=== PATIENT | male | born 1960 | race Caucasian/White ===

== ENCOUNTER → 2019-11-03 | Day surgery (SDC) | payer BC ==
[~2019-11-03] MED LIST: Ketamine 200 MG/20 ML MDV IV ONE; Lactated Ringers 1,000 ML IV SCH; Propofol 200 MG/20 ML SDV IV ONE; fentaNYL 100 MCG/2 ML SDV IV ONE
--- NOTE | 2019-11-03 14:54 | OR ---
DATE OF OPERATION: 11/03/2019 PREOPERATIVE DIAGNOSIS: POSITIVE COLOGUARD. POSTOPERATIVE DIAGNOSIS: POSITIVE COLOGUARD. SURGEON: Shakeel Choudhary MD PROCEDURE: DIAGNOSTIC COLONOSCOPY WITH BIOPSY X1, FORCEPS POLYP REMOVAL X2. ANESTHESIA: MAC. COMPLICATIONS: None. SPECIMEN: 1. Ascending colon biopsy x1. 2. Two small sessile polyps, rectal vault, 2 to 3 mm each. RECOMMENDATIONS: Followup colonoscopy in 5 years. INDICATIONS: The patient was in for routine physical. He never had a colon cancer screen and agreed to do a Cologuard, which was positive. He agreed to a diagnostic colonoscopy. DESCRIPTION OF PROCEDURE: The patient was prepped and draped, placed in a left lateral decubitus position. A lubricated Olympus colonoscope was inserted and with ease advanced to the cecum. Direct visualization of the ileocecal valve and appendiceal orifice was accomplished. The bowel prep was adequate. Upon withdrawal of the scope, cecum appeared benign. In the mid ascending colon, the patient had a very nonspecific area of focal mild colitis, we did a biopsy of that. Throughout the ascending, transverse, and descending colons, there were no polyps, masses, or concerning lesions. This extended into the sigmoid as well. I could find no polyps, masses, ulceration, or bleeding sites. No vascular abnormalities or signs of colitis. No diverticula. In the rectal vault, the patient had 2 small 2 to 3 mm sessile polyps, likely hyperplastic. Removal with forceps was accomplished easily with both. Retroflexion of the scope showed no other perianal lesions. Air was suctioned. Scope was removed without complication. KATELIN/PJ /[id number]
== END ==
LOC: CC.SDS 06:51
PROVIDERS: ATTEND Family Medicine
DX: K62.1 Rectal polyp (principal); K52.9 Noninfective gastroenteritis and colitis, unspecified; I10 Essential (primary) hypertension; E11.9 Type 2 diabetes mellitus without complications; Z79.82 Long term (current) use of aspirin; Z79.899 Other long term (current) drug therapy; Z87.891 Personal history of nicotine dependence
CPT/HCPCS: 00811; J2704; J3010; J7120

== ENCOUNTER 2021-06-07 10:42 | Emergency (ER) | payer OTHER | END 2021-06-07 11:12 | disposition home or self-care (01) | LOC: CC.ED 10:42 | DX: H92.01 Otalgia, right ear (principal); J01.00 Acute maxillary sinusitis, unspecified; I10 Essential (primary) hypertension; Z79.82 Long term (current) use of aspirin; Z79.899 Other long term (current) drug therapy | CPT/HCPCS: 99282; 99283 ==

== ENCOUNTER → 2021-08-14 | Day surgery (SDC) | payer OTHER ==
[~2021-08-14] MED LIST changes: +Dexamethasone 4 MG/ML SDV ONE; -Ketamine 200 MG/20 ML MDV IV ONE; +Ketamine 200 MG/20 ML MDV ONE; +Ketorolac 30 MG/ML SDV ONE; -Lactated Ringers 1,000 ML IV SCH; +Lidocaine 1% with EPINEPHrine 1:100,000 20 ML MDV INJECT ONE; +Midazolam 1 MG/ML 2 ML SDV ONE; +Neostigmine Methylsulfate 10 MG/10 ML MDV ONE; +Ondansetron 4 MG/2 ML SDV ONE; -Propofol 200 MG/20 ML SDV IV ONE; +Propofol 200 MG/20 ML SDV ONE; +Succinylcholine 200 MG/10 ML MDV ONE; +ceFAZolin 1 GM Vial IVPUSH ONE; -fentaNYL 100 MCG/2 ML SDV IV ONE; +fentaNYL 100 MCG/2 ML SDV ONE
[2021-08-14] MEDS: Lactated Ringers 1,000 ML IV SCH ×2 (10:10→10:25)
[2021-08-14 17:43] VITALS: BP 128/67; PULSE 51
== END ==
LOC: CC.SDS 09:43
PROVIDERS: ATTEND Surgery
DX: K40.90 Unilateral inguinal hernia, without obstruction or gangrene, not specified as recurrent (principal); K43.9 Ventral hernia without obstruction or gangrene; N40.0 Benign prostatic hyperplasia without lower urinary tract symptoms; I10 Essential (primary) hypertension; E11.9 Type 2 diabetes mellitus without complications; Z79.82 Long term (current) use of aspirin; Z79.84 Long term (current) use of oral hypoglycemic drugs; Z98.890 Other specified postprocedural states; Z79.899 Other long term (current) drug therapy
CPT/HCPCS: 36415; 82947; 84132; J0330; J0690; J1100; J1885; J2250; J2405; J2704; J2710; J3010; J7030; J7120

== ENCOUNTER 2022-01-04 12:31 | Emergency (ER) | payer OTHER | END 2022-01-04 12:52 | disposition home or self-care (01) | LOC: CC.ED 12:31 | DX: U07.1 COVID-19 (principal); I10 Essential (primary) hypertension; Z79.899 Other long term (current) drug therapy | CPT/HCPCS: 99282; 99283 ==